=== PATIENT | female | born 1945 | race Caucasian/White ===

== ENCOUNTER → 2017-07-28 | Outpatient (CLI) | payer OTHER ==
[~2017-07-28] MED LIST: ACET325; BAYER CHEWABLE81 MG PO; BISHYD2.5; LISHYD2025 PO; POTA8 PO; Tylenol325 MG PO; XARELTO15 MG PO
== END ==
LOC: LAB SHORT 08:24 → PLD 08:24
DX: D48.5 Neoplasm of uncertain behavior of skin (principal)
CPT/HCPCS: 88305

== ENCOUNTER → 2017-08-31 | Outpatient (CLI) | payer OTHER | LOC: PLD 07:38 → LAB SHORT 07:38 | DX: C44.41 Basal cell carcinoma of skin of scalp and neck (principal) | CPT/HCPCS: 88305 ==

== ENCOUNTER → 2017-09-08 | Outpatient (CLI) | payer OTHER | END | disposition home or self-care (01) | LOC: PLD 07:27 → LAB SHORT 07:27 | DX: D04.62 Carcinoma in situ of skin of left upper limb, including shoulder (principal) | CPT/HCPCS: 88305 ==

== ENCOUNTER 2018-08-12 06:52 | Day surgery (SDC) | payer OTHER ==
[~2018-08-12] VITALS: Ht 160 cm; Wt 72.8 kg
[2018-09-22] MEDS ORDERED: OMEPRAZOLE MAGN20 MG PO (08:47)
[2018-09-22] MEDS ORDERED: Calcium Citrat200 MG PO (08:47)
[2018-09-22] MEDS ORDERED: FISH OIL 1,0001 EAC1 PO (08:47)
[2018-09-22] MEDS ORDERED: HYDR1TAB94 PO (08:48)
[2018-09-22] MEDS ORDERED: NAPR500 PO (08:48)
== END 2018-08-12 09:25 | disposition home or self-care (01) ==
LOC: ORSCSDS 06:52
PROVIDERS: Internal Medicine Gastroenterology
PROC: 0DJD8ZZ Inspection of Lower Intestinal Tract, Via Natural or Artificial Opening Endoscopic (ICD-10-PCS; principal; 2018-08-12 08:30)
DX: Z12.11 Encounter for screening for malignant neoplasm of colon (principal); K64.1 Second degree hemorrhoids; K57.30 Diverticulosis of large intestine without perforation or abscess without bleeding; I10 Essential (primary) hypertension; Z86.718 Personal history of other venous thrombosis and embolism; Z86.711 Personal history of pulmonary embolism; Z87.891 Personal history of nicotine dependence; Z79.82 Long term (current) use of aspirin; Z79.899 Other long term (current) drug therapy
CPT/HCPCS: J0330; J1980; J2405; J7120

== ENCOUNTER 2018-09-30 11:50 | Day surgery (SDC) | payer MEDICARE ==
[~2018-09-30] VITALS: Ht 160 cm; Wt 73.9 kg
[~2018-09-30 11:50] MED LIST changes: +Calcium Citrat200 MG PO; +FISH OIL 1,0001 EAC1 PO; +HYDR1TAB94 PO; +NAPR500 PO; +OMEPRAZOLE MAGN20 MG PO
== END 2018-09-30 14:47 | disposition home or self-care (01) ==
LOC: ORSCSDS 11:50
PROVIDERS: Orthopaedic Surgery
PROC: 0RBW0ZZ Excision of Right Finger Phalangeal Joint, Open Approach (ICD-10-PCS; principal; 2018-09-30 13:45)
DX: M67.441 Ganglion, right hand (principal); I12.9 Hypertensive chronic kidney disease with stage 1 through stage 4 chronic kidney disease, or unspecified chronic kidney disease; N18.3 Chronic kidney disease, stage 3 (moderate); Z79.899 Other long term (current) drug therapy; Z79.82 Long term (current) use of aspirin
CPT/HCPCS: 88304; J0690; J1100; J2250; J2370; J2405; J3010; J7120

== ENCOUNTER 2018-10-27 16:18 | Day surgery (SDC) | payer BC ==
[2018-10-27] MEDS ORDERED: MAGNESIUM100 MG PO (16:48)
[2018-10-29] MEDS ORDERED: WARF5 PO (15:09)
[2018-10-29] MEDS ORDERED: Hydrocodone-Ap1 EA23 PO (15:09)
[2018-10-29] MEDS ORDERED: ZESTORETIC 20-251 EA PO (15:10)
== END 2018-10-27 16:55 | disposition home or self-care (01) ==
LOC: ATC 16:18
DX: I82.402 Acute embolism and thrombosis of unspecified deep veins of left lower extremity (principal); Z79.899 Other long term (current) drug therapy; I10 Essential (primary) hypertension; Z87.891 Personal history of nicotine dependence
CPT/HCPCS: 96372; J1650

== ENCOUNTER 2018-10-28 10:42 | Day surgery (SDC) | payer BC ==
[~2018-10-28 10:42] MED LIST changes: +MAGNESIUM100 MG PO
[2018-10-29] MEDS ORDERED: Hydrocodone-Ap1 EA23 PO (15:09)
[2018-10-29] MEDS ORDERED: WARF5 PO (15:09)
[2018-10-29] MEDS ORDERED: ZESTORETIC 20-251 EA PO (15:10)
== END 2018-10-28 12:00 | disposition home or self-care (01) ==
LOC: ATC 10:42
DX: I82.402 Acute embolism and thrombosis of unspecified deep veins of left lower extremity (principal); I10 Essential (primary) hypertension; Z79.899 Other long term (current) drug therapy
CPT/HCPCS: J1650

== ENCOUNTER 2018-10-30 00:06 | Day surgery (SDC) | payer BC ==
[~2018-10-30 00:06] MED LIST changes: +Hydrocodone-Ap1 EA23 PO; +WARF5 PO; +ZESTORETIC 20-251 EA PO
== END 2018-10-30 22:47 | disposition home or self-care (01) ==
LOC: ATC 00:06
DX: I82.402 Acute embolism and thrombosis of unspecified deep veins of left lower extremity (principal); M79.661 Pain in right lower leg; Z79.899 Other long term (current) drug therapy; I10 Essential (primary) hypertension; N18.3 Chronic kidney disease, stage 3 (moderate); Z87.891 Personal history of nicotine dependence

== ENCOUNTER → 2020-01-24 | Outpatient (CLI) | payer MEDICARE ==
[2020-01-24 16:06] LABS: Anion Gap 4 mmol/L (6-16); Blood Urea Nitrogen 17 mg/dL (8-24); Bun/Creatinine Ratio 18.3 (12.0-20.0); CO2, Blood 32 mmol/L (21-32); Calcium, Blood 9.6 mg/dL (8.5-10.1); Chloride, Blood 104 mmol/L (98-108); Creatinine, Blood 0.93 mg/dL (0.40-1.00); Glomerular Filtration Rate >60 (60-); Glucose, Blood 101 mg/dL (70-99); Potassium, Blood 3.5 mmol/L (3.5-5.5); Sodium, Blood 140 mmol/L (136-145)
== END | disposition home or self-care (01) ==
LOC: LAB SHORT 14:02 → LAB 14:02
PROVIDERS: Hospitalist
DX: E87.6 Hypokalemia (principal)
CPT/HCPCS: 80048

== ENCOUNTER → 2020-07-08 | Outpatient (CLI) | payer MEDICARE | END | disposition home or self-care (01) | LOC: PLD 17:49 | DX: M25.50 Pain in unspecified joint (principal) | CPT/HCPCS: 85651; 86430 ==

== ENCOUNTER → 2021-06-26 | Outpatient (CLI) | payer MEDICARE | END | disposition home or self-care (01) | LOC: LAB 15:00 → LAB SHORT 15:00 | DX: R30.0 Dysuria (principal) | CPT/HCPCS: 87077; 87086; 87186 ==

== ENCOUNTER → 2022-03-05 | Outpatient (CLI) | payer MEDICARE | END | disposition home or self-care (01) | LOC: LAB SHORT 10:40 → LAB 10:40 | DX: N30.01 Acute cystitis with hematuria (principal) | CPT/HCPCS: 87077; 87086; 87186 ==

== ENCOUNTER → 2022-04-06 | Outpatient (CLI) | payer MEDICARE ==
[2022-04-06 15:41] LABS: International Normalized Ratio 2.85; Prothrombin Time Results 27.9 Sec (9.7-11.5)
[2022-04-06 17:07] LABS: Bun/Creatinine Ratio 23.5 (12.0-20.0); Calcium, Blood 9.5 mg/dL (8.5-10.1); Creatinine, Blood 0.89 mg/dL (0.40-1.00); Potassium, Blood 3.6 mmol/L (3.5-5.5)
== END | disposition home or self-care (01) ==
LOC: LAB 11:40 → LAB SHORT 11:40
PROVIDERS: Hospitalist
DX: N18.31 Chronic kidney disease, stage 3a (principal); R82.90 Unspecified abnormal findings in urine; Z86.711 Personal history of pulmonary embolism
CPT/HCPCS: 80048; 82043; 85610; 87077; 87086; 87186

== ENCOUNTER → 2023-01-07 | Outpatient (CLI) | payer MEDICARE | END | disposition home or self-care (01) | LOC: LAB 17:31 → LAB SHORT 17:31 | DX: R30.0 Dysuria (principal) | CPT/HCPCS: 87077; 87086; 87186 ==

== ENCOUNTER → 2023-01-21 | Outpatient (CLI) | payer MEDICARE | END | disposition home or self-care (01) | LOC: LAB 11:50 → LAB SHORT 11:50 | DX: N30.00 Acute cystitis without hematuria (principal) | CPT/HCPCS: 87077; 87086; 87186 ==

== ENCOUNTER → 2023-01-21 | Outpatient (CLI) | payer MEDICARE ==
[2023-01-21 19:00] LABS: Creatinine, Urine Random 63.5 mg/dL (27.00-270.00)
[2023-01-21 19:02] LABS: Microalb/Creat Ratio UR, Rand 39.37 mg/g (0.000-30.000)
== END | disposition home or self-care (01) ==
LOC: LAB SHORT 12:00 → LAB 12:00
PROVIDERS: Hospitalist
DX: E11.22 Type 2 diabetes mellitus with diabetic chronic kidney disease (principal)
CPT/HCPCS: 82043; 82570

== ENCOUNTER → 2023-07-22 | Outpatient (CLI) | payer MEDICARE | LOC: LAB 14:20 → LAB SHORT 14:20 | DX: N30.01 Acute cystitis with hematuria (principal) | CPT/HCPCS: 87077; 87086; 87186 ==

== ENCOUNTER → 2023-09-16 | Outpatient (CLI) | payer MEDICARE | LOC: LAB SHORT 17:59 → LAB 17:59 | DX: N30.01 Acute cystitis with hematuria (principal) | CPT/HCPCS: 87077; 87086; 87186 ==

== ENCOUNTER → 2023-09-29 | Outpatient (CLI) | payer MEDICARE | END | disposition home or self-care (01) | LOC: LAB 17:38 → LAB SHORT 17:38 | DX: N30.01 Acute cystitis with hematuria (principal) | CPT/HCPCS: 87077; 87086; 87186 ==

== ENCOUNTER → 2025-04-12 | Outpatient (CLI) | payer MEDICARE ==
[2025-04-12 20:13] LABS: Anion Gap 7.0 mmol/L (3-11); Blood Urea Nitrogen 23.0 mg/dL (8-24); CO2, Blood 31.0 mmol/L (21-32); Calcium, Blood 9.8 mg/dL (8.5-10.1); Chloride, Blood 102.0 mmol/L (98-108); Creatinine, Blood 1.02 mg/dL (0.40-1.00); Glucose, Blood 231.0 mg/dL (70-99); Potassium, Blood 3.4 mmol/L (3.5-5.5); Sodium, Blood 137.0 mmol/L (136-145)
== END | disposition home or self-care (01) ==
LOC: LAB 17:30 → LAB SHORT 17:30
PROVIDERS: Hospitalist
DX: E11.22 Type 2 diabetes mellitus with diabetic chronic kidney disease (principal); N18.9 Chronic kidney disease, unspecified
CPT/HCPCS: 80048; 83036

== ENCOUNTER → 2025-04-13 | Outpatient (CLI) | payer MEDICARE ==
[2025-04-13 15:49] LABS: Creatinine, Urine Random 121.0 mg/dL (27.00-270.00); Microalb/Creat Ratio UR, Rand 37.273 mg/g (0.000-30.000); Microalbumin, Random Urine 45.1 mg/L (0.000-20.000)
== END | disposition home or self-care (01) ==
LOC: LAB 13:23 → LAB SHORT 13:23
PROVIDERS: Hospitalist
DX: E11.22 Type 2 diabetes mellitus with diabetic chronic kidney disease (principal); N18.9 Chronic kidney disease, unspecified
CPT/HCPCS: 82043; 82570

== ENCOUNTER → 2025-04-18 | Outpatient (CLI) | payer MEDICARE ==
[2025-04-18 20:04] LABS: Prothrombin Time Results 23.6 Sec (9.7-11.5)
== END | disposition home or self-care (01) ==
LOC: LAB SHORT 13:40 → LAB 13:40
PROVIDERS: Hospitalist
DX: Z86.711 Personal history of pulmonary embolism (principal)
CPT/HCPCS: 85610